=== PATIENT | female | born 1935 | race Caucasian/White ===

== ENCOUNTER 2020-08-07 15:53 | Outpatient (CLI) | payer MEDICARE ==
[2020-08-08 00:58] LABS: SARS-CoV-2 PCR by NAA Not Detected (NotDetected)
== END 2020-08-07 15:54 | disposition home or self-care (01) ==
LOC: LABBT 15:53
PROVIDERS: ATTEND Internal Medicine
DX: Z01.812 Encounter for preprocedural laboratory examination (principal); I50.9 Heart failure, unspecified; Z20.822 Contact with and (suspected) exposure to COVID-19
CPT/HCPCS: U0003; U0005; 87635

== ENCOUNTER 2020-08-10 07:03 | Day surgery (SDC) | payer MEDICARE ==
[2020-08-10] MEDS ORDERED: PROPOFOL 200 MG/20 ML VIAL ONE (09:11)
[2020-08-10] MEDS ORDERED: Lidocaine 1% PF 5 ML VIAL ONE (09:11)
== END 2020-08-10 11:09 | disposition home or self-care (01) ==
LOC: EDBD → SDC 07:03
PROVIDERS: ATTEND Internal Medicine
PROC: 0DB98ZX Excision of Duodenum, Via Natural or Artificial Opening Endoscopic, Diagnostic (ICD-10-PCS; principal; 2020-08-10)
PROC: 0DB78ZX Excision of Stomach, Pylorus, Via Natural or Artificial Opening Endoscopic, Diagnostic (ICD-10-PCS; 2020-08-10)
PROC: 0DBK8ZX Excision of Ascending Colon, Via Natural or Artificial Opening Endoscopic, Diagnostic (ICD-10-PCS; 2020-08-10)
PROC: 0DBL8ZX Excision of Transverse Colon, Via Natural or Artificial Opening Endoscopic, Diagnostic (ICD-10-PCS; 2020-08-10)
PROC: 0DBP8ZX Excision of Rectum, Via Natural or Artificial Opening Endoscopic, Diagnostic (ICD-10-PCS; 2020-08-10)
DX: D12.2 Benign neoplasm of ascending colon (principal); D12.3 Benign neoplasm of transverse colon; D12.8 Benign neoplasm of rectum; K29.40 Chronic atrophic gastritis without bleeding; K52.9 Noninfective gastroenteritis and colitis, unspecified; K57.30 Diverticulosis of large intestine without perforation or abscess without bleeding; K64.4 Residual hemorrhoidal skin tags; K64.8 Other hemorrhoids; R13.10 Dysphagia, unspecified; K21.9 Gastro-esophageal reflux disease without esophagitis; M19.90 Unspecified osteoarthritis, unspecified site; I48.91 Unspecified atrial fibrillation; E78.00 Pure hypercholesterolemia, unspecified; I10 Essential (primary) hypertension; Z86.010 Personal history of colon polyps; Z79.01 Long term (current) use of anticoagulants; Z79.899 Other long term (current) drug therapy; Z88.0 Allergy status to penicillin; Z88.5 Allergy status to narcotic agent; Z88.8 Allergy status to other drugs, medicaments and biological substances; Z95.5 Presence of coronary angioplasty implant and graft
CPT/HCPCS: 88305; J2704

== ENCOUNTER 2021-07-04 16:07 | Outpatient (CLI) | payer MEDICARE | END 2021-07-04 16:08 | disposition home or self-care (01) | LOC: BICRAD 16:07 | PROVIDERS: ATTEND Specialist | DX: M54.50 Low back pain, unspecified (principal); M84.48XA Pathological fracture, other site, initial encounter for fracture; M47.814 Spondylosis without myelopathy or radiculopathy, thoracic region; M41.9 Scoliosis, unspecified; M47.816 Spondylosis without myelopathy or radiculopathy, lumbar region; R91.8 Other nonspecific abnormal finding of lung field | CPT/HCPCS: 72072; 72100 ==

== ENCOUNTER 2024-03-10 19:50 | Inpatient (IN) | payer MEDICARE ==
[~2024-03-10 19:50] MED LIST: Iopamidol-370 76% 500 ML MDV (1 ML CHARGE) ONE
[2024-03-10] MEDS ORDERED: Magnesium 2 GM/50 ML BAG (IN WATER) ONE (20:20)
[2024-03-10] MEDS ORDERED: Sodium Chloride 0.9% 100 ML ONE (20:20)
[2024-03-10] MEDS ORDERED: methylPREDNISolone Sod Succ/PF 125 MG/2 ML VIAL ONE (20:20)
[2024-03-10] MEDS ORDERED: cefTRIAXone (ROCEPHIN) 1 GM VIAL ONE (20:21)
[2024-03-10] MEDS ORDERED: Albuterol 2.5 MG (0.5 mL) NEB ONE (20:26)
[2024-03-10] MEDS ORDERED: Ipratropium/Albuterol 3 ML NEB ONE (20:27)
[2024-03-10 20:47] LABS: #Basophils 0.07 10x3/uL (0.0-0.2); %Basophils 0.5 % (0.0-1.0); %Eosinophils 0.8 % (0.0-10.0); %Lymphocytes 11.5 % (21.0-51.0); %Monocytes 6.7 % (0.0-10.0); %Neutrophils 79.7 % (42.0-75.0); Hematocrit 40.1 % (36.0-47.0); Hemoglobin 13.6 g/dL (12.0-16.0); Mean Corpuscular HGB CONC 33.9 g/dL (32.0-36.0); Mean Corpuscular Volume 91.3 fL (78.0-98.0); Mean Platelet Volume 10.5 fL (7.4-10.4); Platelet Count 202 10x3/uL (130-400); RBC Distribution Width 13.5 % (11.5-14.5); Red Blood Cell (RBC) Count 4.39 mill/uL (4.20-5.40)
[2024-03-10 21:00] LABS: Actual Bicarbonate (HCO3v) 31.4 mEq/L (22-28); Analyzer IN Cardio ER; Calcium, Ionized (venous) 1.04 mmol/L (1.16-1.32); Chloride (VBG) 90 mmol/L (98-106); Hematocrit-VBG 48 % (36.0-47.0); Hemoglobin (Hb) 16.3 g/dL (11.7-16.1); Potassium (VBG) 3.65 mmol/L (3.70-5.30); Sodium 134 mmol/L (133-146); pH (venous) 7.482 (7.32-7.43)
[2024-03-10 21:10] LABS: ALT (SGPT) 32 U/L (8-55); AST (SGOT) 33 U/L (5-34); Albumin 2.7 g/dL (3.4-4.8); Alkaline Phosphatase 112 U/L (40-110); Anion Gap 16 mmol/L (10-20); BUN (Urea Nitrogen) 22 mg/dL (9.8-20.1); Bilirubin, Total 1.3 mg/dL (0.2-1.2); Calc. Creatinine Clearance 0 mL/min (70-130); Calcium 9.7 mg/dL (7.8-10.44); Carbon Dioxide 32 mmol/L (23-31); Chloride 91 mmol/L (98-107); Estimated GFR 69; Globulin 5.1 g/dL (2.4-3.5); Glucose 104 mg/dL (83-110); Potassium 3.7 mmol/L (3.5-5.1); Protein, Total 7.8 g/dL (5.8-8.1); Sodium 135 mmol/L (136-145); Troponin I 0.052 ng/mL (< 0.028)
[2024-03-10 21:33] LABS: INR-International Normal Ratio 1.7; Prothrombin Time 20.4 sec (12.0-14.7)
[2024-03-10] MEDS ORDERED: Azithromycin 500 MG VIAL ONE (21:36)
[2024-03-10] MEDS ORDERED: Furosemide 40 MG (4 mL) VIAL ONE (23:05)
[2024-03-10 23:30] LABS: Digoxin 0.26 ng/mL (0.8-2.0)
[2024-03-10 23:44] LABS: Lactic Acid 1.48 mmol/L (0.5-2.2)
[2024-03-10 23:49] VITALS: BMI 24.3
[2024-03-11 00:44] LABS: Troponin I 0.039 ng/mL (< 0.028)
[2024-03-11 03:22] LABS: Bacteria/HPF None Seen HPF (None Seen); Bilirubin Negative (Negative); Blood, Urine Negative (Negative); CAUTI Indications for Culture Dysuria,urgency,freq; Clarity Clear (Clear); Glucose, Urine (Dipstick) Normal (Negative); Ketone, Urine Negative (Negative); Leukocyte Negative Leu/uL (Negative); Nitrite Negative (Negative); Protein, Urine (Dipstick) 20 mg/dL (Neg-Trace); RBC/HPF 0-3 HPF (0-3); Specific Gravity, Urine 1.052 (1.002-1.036); Squamous Epithelial 0-3 HPF (0-3); Urobilinogen 3 mg/dL (Less than 2); WBC/HPF 0-3 HPF (0-3)
[2024-03-11 03:23] LABS: Urine Culture Reflex No No
[2024-03-11] MEDS ORDERED: Acetaminophen 650 MG Suppository PR PRN (03:44)
[2024-03-11] MEDS ORDERED: Ondansetron ODT 4 MG TAB PO PRN (03:44)
[2024-03-11] MEDS ORDERED: Ondansetron PF 4 MG/2 ML Vial IVP PRN (03:44)
[2024-03-11] MEDS ORDERED: Calcium Carbonate 500 MG ChewTAB PO PRN (03:44)
[2024-03-11] MEDS ORDERED: Ipratropium/Albuterol 3 ML NEB NEB PRN (04:08)
[2024-03-11 05:46] LABS: Anion Gap 18 mmol/L (10-20); BUN (Urea Nitrogen) 27 mg/dL (9.8-20.1); Calc. Creatinine Clearance 36 mL/min (70-130); Carbon Dioxide 26 mmol/L (23-31); Estimated GFR 49; Glucose 208 mg/dL (83-110); Potassium 3.1 mmol/L (3.5-5.1); Sodium 136 mmol/L (136-145)
[2024-03-11 05:57] LABS: Chloride 95 mmol/L (98-107)
[2024-03-11] MEDS: Ipratropium/Albuterol 3 ML NEB NEB SCH (06:30)
[2024-03-11] MEDS ORDERED: Potassium Chloride 10 MEQ TAB PO SCH (07:30)
[2024-03-11] MEDS: Levothyroxine Sodium 75 MCG TAB PO SCH (09:40)
[2024-03-11] MEDS: Famotidine 20 MG TAB PO SCH (09:40)
[2024-03-11] MEDS: Apixaban 2.5 MG TAB PO SCH (09:40)
[2024-03-11] MEDS: dilTIAZem CD 180 MG CAP PO SCH (09:40)
[2024-03-11] MEDS: Furosemide 20 MG (2 mL) VIAL SLOW IVP SCH (09:40)
[2024-03-11] MEDS: Acetaminophen 325 MG TAB PO SCH (09:41)
[2024-03-11] MEDS: Cefepime 1 GM in Sodium Chloride 0.9% 100 ML IVPB SCH (09:41)
[2024-03-11] MEDS: methylPREDNISolone Sod Succ 40 MG VIAL IVP SCH (09:41)
[2024-03-11] MEDS: Metoprolol Tartrate 50 MG TAB PO SCH (09:42)
[2024-03-11] MEDS: Famotidine/PF 20 mg/2ml Vial SLOW IVP SCH (09:42)
[2024-03-11] MEDS: Furosemide 40 MG (4 mL) VIAL ONE (16:55)
[2024-03-11] MEDS: Digoxin 0.125 MG TAB PO SCH (21:12)
[2024-03-11] MEDS: Rosuvastatin 10 MG TAB PO SCH (21:12)
[2024-03-11] MEDS: Potassium Chloride 10 MEQ TAB PO SCH (21:13)
[2024-03-11] MEDS: Mirtazapine 15 MG TAB PO SCH (21:14)
[2024-03-12 00:22] LABS: Troponin I Less than 0.010 ng/mL (< 0.028)
[2024-03-12 03:14] LABS: #Basophils Less than 0.03 10x3/uL (0.0-0.2); #Eosinophils Less than 0.03 10x3/uL (0.0-0.7); %Basophils 0.2 % (0.0-1.0); %Eosinophils 0.1 % (0.0-10.0); %Lymphocytes 7.3 % (21.0-51.0); %Monocytes 4.4 % (0.0-10.0); %Neutrophils 87.4 % (42.0-75.0); Hemoglobin 11.4 g/dL (12.0-16.0); Mean Corpuscular HGB CONC 33.5 g/dL (32.0-36.0); Mean Corpuscular Hemoglobin 30.8 pg (27.0-31.0); Mean Corpuscular Volume 91.9 fL (78.0-98.0); Mean Platelet Volume 10.8 fL (7.4-10.4); Platelet Count 209 10x3/uL (130-400); RBC Distribution Width 13.3 % (11.5-14.5)
[2024-03-12 03:49] LABS: Anion Gap 16 mmol/L (10-20); BUN (Urea Nitrogen) 30 mg/dL (9.8-20.1); Calc. Creatinine Clearance 39 mL/min (70-130); Calcium 8.8 mg/dL (7.8-10.44); Carbon Dioxide 27 mmol/L (23-31); Chloride 95 mmol/L (98-107); Estimated GFR 55; Glucose 247 mg/dL (83-110); Potassium 3.3 mmol/L (3.5-5.1); Sodium 135 mmol/L (136-145)
[2024-03-12] MEDS: Benzonatate 100 MG CAP PO SCH (20:59)
[2024-03-13 05:56] LABS: #Basophils Less than 0.03 10x3/uL (0.0-0.2); #Eosinophils Less than 0.03 10x3/uL (0.0-0.7); %Basophils 0.2 % (0.0-1.0); %Eosinophils 0.1 % (0.0-10.0); %Lymphocytes 7.1 % (21.0-51.0); %Monocytes 3.3 % (0.0-10.0); %Neutrophils 88.5 % (42.0-75.0); Hematocrit 34.3 % (36.0-47.0); Hemoglobin 11.4 g/dL (12.0-16.0); Mean Corpuscular HGB CONC 33.2 g/dL (32.0-36.0); Mean Corpuscular Hemoglobin 30.7 pg (27.0-31.0); Mean Corpuscular Volume 92.5 fL (78.0-98.0); Platelet Count 220 10x3/uL (130-400); RBC Distribution Width 13.2 % (11.5-14.5); Red Blood Cell (RBC) Count 3.71 mill/uL (4.20-5.40)
[2024-03-13 06:11] LABS: Anion Gap 12 mmol/L (10-20); BUN (Urea Nitrogen) 23 mg/dL (9.8-20.1); Calc. Creatinine Clearance 54 mL/min (70-130); Calcium 9.3 mg/dL (7.8-10.44); Carbon Dioxide 32 mmol/L (23-31); Chloride 100 mmol/L (98-107); Estimated GFR 80; Glucose 160 mg/dL (83-110); Magnesium 2.3 mg/dL (1.6-2.6); Potassium 3.6 mmol/L (3.5-5.1); Sodium 140 mmol/L (136-145)
[2024-03-13 16:13] VITALS: BP 138/80; TEMP 97.3
== END 2024-03-13 17:41 | disposition home or self-care (01) | DRG 871 ==
LOC: ERS 19:50 → ERHOLD 23:21 → IMCU/EMU 03-11 07:43 → 2NO 03-12 19:35
PROVIDERS: ADMIT Student in an Organized Health Care Education/Training Program; ATTEND Internal Medicine
DX: A41.9 Sepsis, unspecified organism (principal); J18.9 Pneumonia, unspecified organism; J96.21 Acute and chronic respiratory failure with hypoxia; I48.20 Chronic atrial fibrillation, unspecified; I5A Non-ischemic myocardial injury (non-traumatic); J84.10 Pulmonary fibrosis, unspecified; E78.5 Hyperlipidemia, unspecified; K21.9 Gastro-esophageal reflux disease without esophagitis; I50.9 Heart failure, unspecified; F41.9 Anxiety disorder, unspecified; I11.0 Hypertensive heart disease with heart failure; J44.9 Chronic obstructive pulmonary disease, unspecified; Z90.49 Acquired absence of other specified parts of digestive tract; Z88.5 Allergy status to narcotic agent; Z95.5 Presence of coronary angioplasty implant and graft; Z88.8 Allergy status to other drugs, medicaments and biological substances; Z90.710 Acquired absence of both cervix and uterus; Z79.01 Long term (current) use of anticoagulants; Z79.899 Other long term (current) drug therapy; Z79.890 Hormone replacement therapy; Z99.81 Dependence on supplemental oxygen
CPT/HCPCS: 36415; 71045; 71275; 80048; 80053; 80162; 81001; 82805; 83605; 83735; 83880; 84484; 85025; 85610; 85730; 87040; 87086; 87428; 93005; 93798; J0456; J0692; J0696; J1940; J2919; J3475; J7611; J7620; Q9967